=== PATIENT | female | born 1960 | race Caucasian/White ===

== ENCOUNTER → 2017-07-09 07:32 | Outpatient (CLI) | payer BC, SELFPAY ==
--- NOTE | 2017-07-09 07:36 | US_ITS ---
US abdomen limited: HISTORY: Nausea and pain after eating in the epigastric region ITS.REASON: UPPER ABD PAIN, NAUSEA ORDERING PHYSICIAN: Reema Saldana PATIENT AGE: 57 years COMPARISON: None FINDINGS: PANCREAS: Unremarkable. No obvious mass or abnormal fluid collection. No ductal dilatation LIVER: No focal liver lesions demonstrated. Homogeneous echogenicity. No intrahepatic biliary ductal dilatation evident RIGHT KIDNEY: Unremarkable. Normal size and echogenicity. No hydronephrosis GALLBLADDER: There is a 5 mm polyp in the upper aspect of the body of the gallbladder. No gallstones, gallbladder wall thickening, or pericholecystic fluid is evident. IMPRESSION: Small gallbladder polyp otherwise negative gallbladder ultrasound
== END ==
PROVIDERS: PCP Nurse Practitioner; Visit Provider Nurse Practitioner
DX: R10.84 Generalized abdominal pain (principal); R11.0 Nausea
CPT/HCPCS: 76705

== ENCOUNTER → 2017-07-20 10:07 | Outpatient (CLI) | payer BC, SELFPAY ==
--- NOTE | 2017-07-20 10:12 | NM_ITS ---
NM hepatobiliary wo pharm HISTORY: Postprandial nausea and epigastric pain, abnormal ultrasound ITS.REASON: GALLBLADDER POLYP ORDERING PHYSICIAN: Reema Saldana PATIENT AGE: 57 years COMPARISON: None DOSE: 8.53 MCI TC Choletec Fatty Meal: Ensure FINDINGS: Homogeneous activity is present within the hepatic parenchyma. Activity is present in the gallbladder by 15 minutes. Activity is present in the small bowel by 60 minutes. The gallbladder ejection fraction is calculated to be 67% The patient did not report pain or other symptoms after fatty meal ingestion. IMPRESSION: Unremarkable hepatobiliary scan and gallbladder ejection fraction. No evidence of common or cystic duct obstruction with normal gallbladder ejection fraction
--- NOTE | 2017-07-20 10:49 | HMH.ITSHM ---
LEVOTHYROXINE CRESTOR LOSARTAN ESTRADIOL HYDROXIZINE MELOXICAM PANTOPRAZOLE
== END ==
PROVIDERS: PCP Nurse Practitioner; Visit Provider Nurse Practitioner
DX: K82.4 Cholesterolosis of gallbladder (principal)
CPT/HCPCS: 78226; A9537

== ENCOUNTER → 2017-10-15 08:57 | Outpatient (CLI) | payer BC, SELFPAY ==
--- NOTE | 2017-10-15 08:58 | XR_ITS ---
XR DEXA axial skeleton HISTORY: ITS.REASON: screening ORDERING PHYSICIAN: Truman Chilel MD PATIENT AGE: 57 years COMPARISON: 04/27/2016 FINDINGS: The BMD measured at the left femoral neck is 1.045 g/cm squared with a T score of 0.0 . This is considered normal according to the World Health Organization criteria. Fracture risk is low. L1-L4 density has a T score 5.1. The bone density of the L spine has increased by 4% and the density of the hips is increased by 1% compared to the previous exam IMPRESSION: Normal bone density. Suggest follow-up exam October 2019
--- NOTE | 2017-10-15 08:58 | MM_ITS ---
MM Dig screening mamm BI w/CAD CAD Screening COMPARISON: Digital mammograms with CAD 04/27/2016 and 6 month follow-up left mammogram 11/05/2016 INDICATION: There is no personal or family history of breast cancer. This been previous biopsy right breast for benign disease. TECHNIQUE: Standard CC and MLO images were obtained. R2 CAD reviewed. FINDINGS: Moderate heterogenic fibroglandular densities are seen in the central portions of both breast. There are couple benign-appearing calcifications right breast. 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 There is no suspicious lesion and there are no suspicious microcalcifications. IMPRESSION: Moderate breast density with no suspicious lesion seen BI-RADS Category: 2 Benign Finding(s) RECOMMENDED FOLLOW-UP: 1YR - 1 YEAR FOLLOW-UP (A letter has been sent to the patient regarding results of the study.)
== END ==
PROVIDERS: PCP Nurse Practitioner; Visit Provider Obstetrics & Gynecology
DX: Z12.31 Encounter for screening mammogram for malignant neoplasm of breast (principal); Z78.0 Asymptomatic menopausal state
CPT/HCPCS: 77067; 77080

== ENCOUNTER → 2018-01-14 14:06 | Outpatient (CLI) | payer BC, SELFPAY ==
[2018-01-14 15:00] LABS: Blood Urea Nitrogen 16 mg/dL (7-18); Estimated Glomerular Filt Rate 73 ml/min (>60); GFR (African American) 89 ML/MIN (>60)
--- NOTE | 2018-01-14 15:10 | CT_ITS ---
CT facial bones w con CLINICAL INDICATION: Facial pain ITS.REASON: ATYPICAL FACIAL PAIN ORDERING PHYSICIAN: Reema Saldana PATIENT AGE: 57 years COMPARISON: None TECHNIQUE:Axial images obtained following the intravenous ministration of 100 mL's of Isovue-370 with sagittal and coronal reformats. All CT scans at the facility use one or more dose reduction, viz: automated exposure control, ma/kV adjustment per patient size (including targeted exams where dose is matched to indication, i.e. head), or iterative reconstruction technique. FINDINGS: There is a small retention cyst in the floor the right maxillary sinus at 12 mm. Sinuses are otherwise unremarkable with no significant mucosal thickening or air-fluid levels. No adenopathy or soft tissue mass is evident. The orbits have an unremarkable appearance. The TMJs are unremarkable. Incidental note made of a partially empty sella. There is mild rightward nasal septal deviation inferiorly with a small right brent bullosa and mild leftward nasal septal deviation superiorly. The ostomy or units are patent. IMPRESSION: 1. Small right maxillary sinus retention cyst 2. Other nonacute findings as described above
== END ==
PROVIDERS: PCP Nurse Practitioner; Visit Provider Nurse Practitioner
DX: G50.1 Atypical facial pain (principal)
CPT/HCPCS: 36415; 70487; 82565; 84520; Q9967

== ENCOUNTER → 2018-06-20 10:36 | Outpatient (CLI) | payer BC, SELFPAY ==
--- NOTE | 2018-06-20 10:39 | MR_ITS ---
MR lumbar spine wo con, MR 3-d myelogram/MRCP HISTORY: Pain when bending. LBP but worse on LT side. Numbness in LT leg. ITS.REASON: ARTHRITIS, LBP ORDERING PHYSICIAN: Reema Saldana PATIENT AGE: 58 years Comparison: None TECHNIQUE: Standard multiplanar multiecho sequences are performed without contrast. 3-D MIP and myelographic images are also rendered and reviewed FINDINGS: There is normal alignment. The spinal cord ends at the L1 level. L1-L2: Mild bulging disc with mild facet and ligamentum flavum hypertrophy and mild bilateral lateral recess and foraminal narrowing. L2-L3: Mild bulging disc with mild facet and ligamentum flavum hypertrophy and mild bilateral lateral recess and foraminal narrowing L3-L4: Mild bulging disc with mild facet and ligamentum flavum hypertrophy and mild bilateral lateral recess and foraminal narrowing L4-5: Degenerative disc disease with concentric bulging disc which is eccentric toward the right with a right foraminal and lateral disc osteophyte complex. There is right-sided lateral recess and moderate right-sided foraminal narrowing. There is moderate left-sided foraminal narrowing as well and left lateral recess narrowing. Transverse narrowing of the canal at 9 mm. L5-S1: Mild concentric bulging disc facet and ligamentum flavum hypertrophy with moderate left-sided foraminal narrowing. No herniated disc is evident. IMPRESSION: 1. Mild multilevel bulging disc, facet and ligamentum flavum hypertrophy with bilateral lateral recess and foraminal narrowing. Please see above for details description at each level. 2. L4-5: Degenerative disc disease with concentric bulging disc which is eccentric toward the right with a right foraminal and lateral disc osteophyte complex. There is right-sided lateral recess and moderate right-sided foraminal narrowing. There is moderate left-sided foraminal narrowing as well and left lateral recess narrowing. Transverse narrowing of the canal at 9 mm. 3. L5-S1: Mild concentric bulging disc facet and ligamentum flavum hypertrophy with moderate left-sided foraminal narrowing. 4. No herniated disc is evident
== END ==
PROVIDERS: PCP Nurse Practitioner; Visit Provider Nurse Practitioner
DX: M54.5 Low back pain (principal); M19.90 Unspecified osteoarthritis, unspecified site; M25.50 Pain in unspecified joint; R20.0 Anesthesia of skin
CPT/HCPCS: 72148; 76376

== ENCOUNTER → 2018-10-17 08:26 | Outpatient (CLI) | payer BC, SELFPAY ==
--- NOTE | 2018-10-17 08:27 | MM_ITS ---
MM Dig screening mamm BI w/CAD CAD Screening COMPARISON: Digital mammograms with CAD 10/15/2017 and 04/27/2016 INDICATION: There is no personal or family history of breast cancer. There is been previous biopsy right breast for benign disease. TECHNIQUE: Standard CC and MLO images were obtained. R2 CAD reviewed. FINDINGS: Moderate scattered fibroglandular densities are seen in both breast. There is a mole on each breast. There are couple benign-appearing microcalcifications in each breast. There is no suspicious lesion and no suspicious microcalcifications. IMPRESSION: Fibrofatty parenchyma no suspicious lesion seen BI-RADS Category: 2 Benign Finding(s) RECOMMENDED FOLLOW-UP: 1YR - 1 YEAR FOLLOW-UP (A letter has been sent to the patient regarding results of the study.)
== END ==
PROVIDERS: PCP Nurse Practitioner; Visit Provider Obstetrics & Gynecology
DX: Z12.31 Encounter for screening mammogram for malignant neoplasm of breast (principal)
CPT/HCPCS: 77067

== ENCOUNTER → 2019-01-10 08:31 | Outpatient (POV) | payer BC, SELFPAY | PROVIDERS: Visit Provider Dermatology | DX: Z00.00 Encounter for general adult medical examination without abnormal findings (principal) ==

== ENCOUNTER → 2019-10-26 09:43 | Outpatient (CLI) | payer BC, SELFPAY ==
--- NOTE | 2019-10-26 09:43 | MM_ITS ---
PROCEDURE: MM DIG SCREENING MAMM BI W/CAD Digital Breast Tomosynthesis Included CLINICAL INDICATION: Routine Screening Mammogram There is no personal or family history of breast cancer. There has been a previous biopsy right breast for benign disease. Patient currently is on estrogen. COMPARISON: DMDXUAVL DIG MAMM-DX UNI A/VWS-LT W/CAD from 05/06/2016 DMDXUL DIG MAMM-DX UNI-LT W/CAD from 11/05/2016 [facility] MM Dig screening mamm BI w/CAD from 10/15/2017 DIG MAMM-SCREEN FAWN from 10/17/2018 TECHNIQUE: Standard CC and MLO images and 3D Tomosynthesis was obtained. R2 CAD reviewed. FINDINGS: Scattered fibroglandular densities are seen throughout both breasts. There are 2 biopsy clips right breast. There is a mole marker right breast. Again noted are scattered microcalcifications left breast which appear to be typical of sclerosing and they appear to be stable. IMPRESSION: Fibrofatty parenchyma with no suspicious lesions seen BI-RAD Category: 2 Benign Finding(s) FOLLOW-UP: 1YR 1 Year Follow-up (A letter has been sent to the patient regarding results of the study.) Dictated by: Dr. Neto Bridges MD 10/27/2019 10:[address] Neto Bridges MD in [place] 10/27/2019 10:04
== END ==
PROVIDERS: PCP Nurse Practitioner; Visit Provider Obstetrics & Gynecology
DX: Z12.31 Encounter for screening mammogram for malignant neoplasm of breast (principal)
CPT/HCPCS: 77063; 77067

== ENCOUNTER → 2019-12-22 14:17 | Outpatient (CLI) | payer BC, SELFPAY ==
--- NOTE | 2019-12-22 14:24 | MR_ITS ---
PROCEDURE: MR HIP LT WO CON CLINICAL INDICATION: HIP PAIN PT. C/O LEFT HIP PAIN X 3-4 MONTHS WITH NO KNOWN INJURY OR TRAUMA. COMPARISON: No exams were available for comparison TECHNIQUE: Routine multiplanar multi echo sequences are performed without and with gadolinium enhancement. FINDINGS: The left hip has an unremarkable appearance. No evidence of fracture or dislocation. No evidence of avascular necrosis. No significant effusion. There is a small oval fluid collection in the deep aspect left vastus lateralis muscle this measures 13 by 13 by 8 mm. IMPRESSION: 1. Negative MRI of the left hip. 2. 13 mm cystic region within the deep aspect of the left vastus lateralis muscle. This is along the proximal shaft of the femur laterally and is of questionable clinical significance. Consider 3 month follow-up to confirm short term stability. Dictated by: Noble Ravi MD 12/27/2019 09:00 Noble Ravi MD in [place] 12/27/2019 09:00
== END ==
PROVIDERS: PCP Nurse Practitioner; Visit Provider Nurse Practitioner
DX: M25.552 Pain in left hip (principal)
CPT/HCPCS: 73721

== ENCOUNTER → 2020-01-05 12:25 | Outpatient (CLI) | payer BC, SELFPAY ==
--- NOTE | 2020-01-05 | XR_ITS ---
PROCEDURE: XR CHEST 2V CLINICAL HISTORY: NONSPEC REACTION TO GAMMA INTRFM RESPNS W/O TB COMPARISON: CR CXR CHEST(2 VIEWS-NOT PORTABLE) from 04/13/2016 FINDINGS: The cardiomediastinal silhouette and pulmonary vascularity are within normal limits. The lungs are clear without infiltrates, suspicious nodules, or pleural effusions. No acute bony abnormalities. IMPRESSION: No acute findings. Dictated by: Noble Ravi MD 01/05/2020 18:37 Noble Ravi MD in [place] 01/05/2020 18:37
== END ==
PROVIDERS: PCP Nurse Practitioner; Visit Provider Internal Medicine
DX: R76.12 Nonspecific reaction to cell mediated immunity measurement of gamma interferon antigen response without active tuberculosis (principal)
CPT/HCPCS: 71046

== ENCOUNTER → 2020-01-09 08:55 | Outpatient (CLI) | payer BC, SELFPAY ==
--- NOTE | 2020-01-09 08:59 | XR_ITS ---
PROCEDURE: XR HIP LT 2-3V W/PELVIS CLINICAL INDICATION: left hip pain COMPARISON: CR BONE BONE DENSITOMETRY(HIP:LT SPINE from 04/07/2013 CR BONE3 BONE DENSITOMETRY(HIP:LT SPINE from 04/27/2016 FINDINGS: Minimal osteoarthritic changes are present. No fracture or dislocation. No lytic or blastic change. IMPRESSION: Minimal osteoarthritic change otherwise negative Dictated by: Noble Ravi MD 01/09/2020 13:10 Noble Ravi MD in [place] 01/09/2020 13:10
== END ==
PROVIDERS: PCP Nurse Practitioner; Visit Provider Orthopaedic Surgery
DX: M25.552 Pain in left hip (principal)
CPT/HCPCS: 73502

== ENCOUNTER 2020-02-09 10:30 | Outpatient (RCR) | payer BC, SELFPAY ==
--- NOTE | 2020-01-17 15:52 | HMH.PTOPEV ---
PT Outpatient Evaluation Rehab PT Outpatient Evaluation Start: 01/17/20 15:37 Freq: Status: Active Protocol: Document 01/17/20 15:37 MALATHI (Rec: 01/17/20 15:52 MALATHI [email or web address]) Electronically Signed By Joao Rosa, PT 01/17/20 15:37 Outpatient Therapy Subjective History Subjective History Patient is a 59 year old female presenting to outpatient PT with reports of chronic Left hip pain starting approx 2 years ago that has progressively gotten worse over the past 6 months. Symptoms of insidious onset. She most recently received an injection approx 1 week ago that has provided some significant relief. No recent imaging to report. Comorbidities include hx of B ankle pain/instability, HTN, HL, hysterectomy and appendectomy. Chief Complaint Pain Symptom Type Ache Symptoms Relieved By Rest/Positioning Symptoms Aggravated By Standing,Physical Activity, Walking Prior Functional Limitations None Current Functional Limitations Housework,Standing,Squatting, Recreation Activity,Walking, Stairs Symptom Description Intermittent Level of pain today (0-10) 0 Pain scale - at its best (0-10) 0 Pain scale - at its worst (0-10) 9 Hip/Knee Eval Gait Observation General Gait Pattern Observation Antalgic Gait,Decrease Weight Bear (L) Assistive Device Assistive Devices None / NA Palpation Tenderness left Knee Palpation Overall Comment L greater trochanter/ pififormis 3/4 Hip Palpation Findings Tenderness MMT Hip Flexion Strength Grade 4 Good Hip Abduction Strength Grade 4 Good Hip Adduction Strength Grade 4- Good- Hip Extension Strength Grade 4- Good- Hip External Rotation Strength Grade 4- Good- Hip Internal Rotation Strength Grade 4- Good- Knee Extension Strength Grade 4 Good Knee Flexion Strength Grade 4 Good ROM Hip Flexion w/Knee Extended Passive 65 Range of Motion (degrees) Hip Abduction Passive Range of Motion ( WNL degrees) Hip Extension Passive Range of Motion ( 5 degrees) Hip External Rotation Passive Range of WNL Motion (degrees)
== END 2020-02-09 10:35 | disposition home or self-care (01) ==
LOC: PT 10:30
PROVIDERS: PCP Nurse Practitioner; Visit Provider Orthopaedic Surgery
DX: M70.62 Trochanteric bursitis, left hip (principal); M25.552 Pain in left hip
CPT/HCPCS: 20561; 97010; 97014; 97033; 97035; 97110; 97140; 97163; G0283

== ENCOUNTER → 2020-04-09 09:48 | Outpatient (CLI) | payer BC, SELFPAY ==
--- NOTE | 2020-04-09 09:52 | XR_ITS ---
PROCEDURE: XR HIP LT 2-3V W/PELVIS CLINICAL INDICATION: left hip pain COMPARISON: CR XR HIP LT 2-3V W/PELVIS from 01/09/2020 FINDINGS: No fracture or dislocation is evident. No significant degenerative change. No lytic or blastic change. Unremarkable soft tissues. The SI joints and symphysis pubis appear normal. There is disc space narrowing and mild osteophytic spurring at the L4-5 level. IMPRESSION: No acute findings. Dictated by: Dr. Neto Bridges MD 04/09/2020 11:04 Dr. Neto Bridges MD in [place] 04/09/2020 11:04
== END ==
PROVIDERS: PCP Nurse Practitioner; Visit Provider Orthopaedic Surgery
DX: M25.552 Pain in left hip (principal); G89.29 Other chronic pain
CPT/HCPCS: 73502

== ENCOUNTER → 2020-10-30 07:53 | Outpatient (CLI) | payer BC, SELFPAY ==
--- NOTE | 2020-10-30 07:53 | MM_ITS ---
PROCEDURE: MM DIG SCREENING MAMM BI W/CAD Digital Breast Tomosynthesis Included CLINICAL INDICATION: screening mammogram There is no personal or family history of breast cancer. There has been a previous biopsy right breast for benign disease. Patient currently is on estrogen. COMPARISON: MG [facility] MM Dig screening mamm BI w/CAD from 10/15/2017 MG DIG MAMM-SCREEN FAWN from 10/17/2018 MG MM DIG SCREENING MAMM BI W/CAD from 10/26/2019 TECHNIQUE: Standard CC and MLO images and 3D Tomosynthesis was obtained. R2 CAD reviewed. FINDINGS: Moderate diffuse fibroglandular densities are seen in the central portions of both breasts. There are 2 biopsy clips right breast and there is a benign-appearing microcalcification left breast. CAD markings were reviewed and they appear to be secondary to faint vascular calcifications. There is no suspicious lesion and no suspicious microcalcifications. IMPRESSION: Fibrofatty parenchyma with no suspicious lesions seen BI-RAD Category: 2 Benign Finding(s) FOLLOW-UP: 1YR 1 Year Follow-up (A letter has been sent to the patient regarding results of the study.) Dictated by: Dr. Neto Bridges MD 10/30/2020 14:43 Dr. Neto Bridges MD in [place] 10/30/2020 14:43
== END ==
PROVIDERS: PCP Family Medicine; Visit Provider Obstetrics & Gynecology
DX: Z12.31 Encounter for screening mammogram for malignant neoplasm of breast (principal)
CPT/HCPCS: 77063; 77067

== ENCOUNTER → 2021-11-03 10:49 | Outpatient (CLI) | payer BC, SELFPAY ==
--- NOTE | 2021-11-03 10:49 | MM_ITS ---
PROCEDURE INFORMATION: Exam: MG Bilateral Screening 3D Mammography Exam date and time: 11/03/2021 10:50 AM Age: 61 years old Clinical indication: Screening examination; Additional info: Screening mammogram TECHNIQUE: Imaging protocol: Bilateral Screening tomosynthesis and 2D mammography including computer-aided detection (CAD) when performed. COMPARISON: 1. MG MM DIG SCREENING MAMM BI W/CAD 10/30/2020 8:15 AM 2. MG MM DIG SCREENING MAMM BI W/CAD 10/26/2019 9:52 AM 3. MG DIG MAMM-SCREEN FAWN 10/17/2018 8:59 AM FINDINGS: MAMMOGRAPHY: Breast composition: The breasts are heterogeneously dense, which may obscure small masses. Mass: No suspicious masses. Architectural distortion: No suspicious distortion. Calcifications: No suspicious calcifications. Asymmetric density: None. Skin thickening: None. Axillary adenopathy: None. IMPRESSION: No mammographic evidence of malignancy. Annual screening is recommended unless otherwise clinically indicated. ASSESSMENT: BI-RADS Category 1: Negative
== END ==
PROVIDERS: PCP Family Medicine; Visit Provider Obstetrics & Gynecology
DX: Z12.31 Encounter for screening mammogram for malignant neoplasm of breast (principal)
CPT/HCPCS: 77063; 77067

== ENCOUNTER → 2022-12-21 13:00 | Outpatient (CLI) | payer BC, SELFPAY ==
--- NOTE | 2022-12-21 13:01 | MM_ITS ---
PROCEDURE INFORMATION: Exam: MG Bilateral Screening 3D Mammography Exam date and time: 12/21/2022 1:18 PM Age: 62 years old Clinical indication: Screening examination TECHNIQUE: Imaging protocol: Bilateral Screening tomosynthesis and 2D mammography including computer-aided detection (CAD) when performed. COMPARISON: 1. MG MM DIG SCREENING MAMM BI W/CAD 11/03/2021 10:50 AM 2. MG MM DIG SCREENING MAMM BI W/CAD 10/30/2020 8:15 AM FINDINGS: MAMMOGRAPHY: Breast composition: The breasts are heterogeneously dense, which may obscure small masses. Mass: None. Architectural distortion: None. Calcifications: No suspicious calcifications. Asymmetric density: None. Skin thickening: None. Axillary adenopathy: None. IMPRESSION: No mammographic evidence of malignancy. Annual screening is recommended unless otherwise clinically indicated. ASSESSMENT: BI-RADS Category 1: Negative
== END ==
PROVIDERS: PCP Family Medicine; Visit Provider Nurse Practitioner Obstetrics & Gynecology
DX: Z12.31 Encounter for screening mammogram for malignant neoplasm of breast (principal)
CPT/HCPCS: 77063; 77067

== ENCOUNTER 2023-08-11 14:02 | Outpatient (CLI) | payer MEDICARE, SELFPAY ==
--- NOTE | 2023-08-11 14:05 | CA_ITS ---
APPROVED REPORT EXAM: Comprehensive 2D, Doppler, and color-flow Echocardiogram Family Consumer Scientist: Xiao Reveles RVT Ht: 5 ft 9 in Wt: 212lbs BSA: 2.12 BP: 118/80 mmHg Indications: SOA,BRADYCARDIA,HTN,HLD 2D Dimensions IVSd 1.23 cm F: 0.6-1.0 LVEF (Visual) 62.10 % PWd 0.76 cm F: 0.6 - 1.0 LA Volume 65.20 mL LVDd 4.02 cm F: 3.9 - 5.3 LA Volume Index 30.75 mL/m2 (M/F) 16-34 LVDs 2.69 cm F: 2.2 - 3.5 M-Mode Dimensions RVDd 3.15 cm (0.9-2.6) LA Diam 3.93 cm (1.9-4.0) LVDd 5.16 cm (3.5-5.7) IVSd 0.76 cm (0.6-1.1) PWd 0.61 cm (0.6-1.1) EDV (Teich) 127.20 mL TAPSE 2.68 (<1.7) LV Diastology E Decel Time 167 (160-240 msec) E/A Ratio 1.1 Aortic Valve SHAWNA Index 0.92 cm2/m2 AoV Peak Roger. 172.0 (50-130 cm/s) AO Peak GR. 11.80 mmHg AO Mean GR. 5.50 (<5 mmHg) AO VTI 34.2 (18-25 cm) SHAWNA (VTI) 2.00 (2.5-4.5 cm2) Mitral Valve MV E Max Roger. 87.0 (40-130 cm/s) MV A Velocity 81.0 (40-130 cm/s) E/A Ratio 1.08 MV PHT 49.0 ms Pulmonary Valve PV Peak Velocity 105.0 (50-150 cm/s) Tricuspid Valve TR P. Velocity 200.00 cm/s RAP Estimate 10.00 mmHg RVSP 25.90 mmHg Left Ventricle The left ventricle is normal size. The left ventricular systolic function is normal. The left ventricular ejection fraction is within the normal range. Proximal septal thickening is noted. There is normal LV segmental wall motion. The left ventricular diastolic function is normal. LVEF is 60%. Right Ventricle The right ventricle is normal size. The right ventricular systolic function is normal. Atria The left atrium size is normal. The right atrium size is normal. There is no Doppler evidence of interatrial shunt. Aortic Valve The aortic valve opens well. There is no aortic valvular stenosis. No aortic regurgitation is present. Mitral Valve The mitral valve is normal in structure. No evidence of mitral valve stenosis. There is no mitral valve regurgitation noted. Tricuspid Valve The tricuspid valve leaflets are thin and pliable. Trace tricuspid regurgitation. There is insufficient TR jet to estimate RVSP. Pulmonic Valve The pulmonary valve is normal in structure. Trace pulmonic regurgitation. Great Vessels The aortic root is normal in size. The ascending aorta is normal in size. IVC is normal in size and collapses >50% with inspiration. Pericardium There is no pericardial effusion. Other Information Study Quality: Fair Conclusion Normal biventricular systolic function. No significant valvular stenosis or regurgitation. Electronically signed by : Nurys Darnell MD 08/15/2023 19:20:13
== END 2023-08-11 23:59 | disposition home or self-care (01) ==
LOC: RT 14:03
PROVIDERS: PCP Family Medicine; Visit Provider Family Medicine
DX: R60.0 Localized edema (principal); R00.2 Palpitations; R06.02 Shortness of breath
CPT/HCPCS: 93306

== ENCOUNTER 2024-01-07 12:53 | Outpatient (CLI) | payer MEDICARE, SELFPAY ==
--- NOTE | 2024-01-07 12:53 | MM_ITS ---
PROCEDURE INFORMATION: Exam: MG Bilateral Screening 3D Mammography Exam date and time: 01/07/2024 12:48 PM Age: 63 years old Clinical indication: Screening examination. TECHNIQUE: Imaging protocol: Bilateral Screening tomosynthesis and 2D mammography including computer-aided detection (CAD) when performed. COMPARISON: 1. MG MM DIG SCREENING MAMM BI W/CAD 12/21/2022 1:18 PM 2. MG MM DIG SCREENING MAMM BI W/CAD 11/03/2021 10:50 AM FINDINGS: MAMMOGRAPHY: Breast composition: There are scattered areas of fibroglandular density. Mass: None. Architectural distortion: None. Calcifications: No suspicious calcifications. Asymmetric density: None. Skin thickening: None. Axillary adenopathy: None. IMPRESSION: No mammographic evidence of malignancy. Annual screening is recommended unless otherwise clinically indicated. ASSESSMENT: BI-RADS Category 1: Negative.
== END 2024-01-07 23:59 | disposition home or self-care (01) ==
LOC: RAD 12:53
PROVIDERS: PCP Family Medicine; Visit Provider Obstetrics & Gynecology
DX: Z12.31 Encounter for screening mammogram for malignant neoplasm of breast (principal)
CPT/HCPCS: 77063; 77067

== ENCOUNTER 2024-05-16 11:35 | Outpatient (CLI) | payer MEDICARE, SELFPAY ==
[2024-05-16 12:07] LABS: Basophils # 0.1 K/mm3 (0-0.2); Basophils % 0.8 % (0.1-2.0); Eosinophils # 0.1 K/mm3 (0.0-0.4); Hematocrit 43.9 % (37.0-47.0); Hemoglobin 13.8 g/dL (12.2-16.2); Lymphocytes # 2.4 K/mm3 (0.7-4.5); Lymphocytes % 37.3 % (10-50); Mean Corpuscular HGB Conc 31.4 g/dL (31.8-35.4); Mean Corpuscular Hemoglobin 26.7 pg (27.0-31.2); Mean Corpuscular Volume 85.1 fl (81-99); Mean Platelet Volume 10.3 fl (7.4-10.4); Monocytes # 0.6 K/mm3 (0.1-1.0); Monocytes % 8.8 % (1.7-9.3); Neutrophils # 3.2 K/mm3 (1.8-7.8); Neutrophils % 50.9 % (37.0-80.0); Platelet Count 335 K/mm3 (142-424); Red Blood Count 5.16 M/mm3 (4.20-5.40); Red Cell Distribution Width 13.9 % (11.5-17.5); White Blood Count 6.4 K/mm3 (4.8-10.8)
[2024-05-16 12:17] LABS: Albumin Level 4.6 g/dl (3.5-5.0); Chloride 105 mmol/L (98-107); Potassium 4.6 mmoL/L (3.5-5.1); Sodium 143 mmol/L (136-145)
[2024-05-16 12:20] LABS: Alanine Aminotransferase 23 U/L (12-78); Albumin/Globulin Ratio 1.6 (1.1-1.8); Alkaline Phosphatase 75 U/L (38-126); Anion Gap 14.6 mEq/L (5-15); Aspartate Amino Transferase 29 U/L (14-36); Bilirubin,Total 1.4 mg/dl (0.2-1.3); Blood Urea Nitrogen 25 mg/dl (7-17); Carbon Dioxide 28 mmol/L (22.0-30.0); Estimated Glomerular Filt Rate 72 ml/min (>60); GFR (African American) 87 ML/MIN (>60); Globulin 2.9 g/dL (1.3-3.2); Total Protein,Serum 7.5 g/dl (6.3-8.2)
[2024-05-16 12:21] LABS: Glucose 144 mg/dl (74-100)
== END 2024-05-16 23:59 | disposition home or self-care (01) ==
LOC: LAB 11:36
PROVIDERS: PCP Family Medicine; Visit Provider Obstetrics & Gynecology
DX: E78.5 Hyperlipidemia, unspecified (principal); I10 Essential (primary) hypertension
CPT/HCPCS: 36415; 80053; 85025

== ENCOUNTER 2025-02-13 14:06 | Outpatient (CLI) | payer MEDICARE, SELFPAY ==
--- OUTSIDE RECORDS SUMMARY | 2024-12-29 13:45 | XMS_ITS | Encounter Summary ---
Author Organization [facility] yste Address [address] [place] [address] Care Team Providers Care Respooler Name Role Phone Jamaal Diaz MD Primary Care Provider + Reason for Visit * Reason Comments Osteoarthritis Follow up Encounter Details Date Type Department Care Team (Latest Contact Info) Description 12/29/2024 2:45 PM EDT Office Visit [facility] RHEUMATOLOGY [address] [address] Hal Wadsworth DO [address] [phone] Primary osteoarthritis involving multiple joints (Primary Dx); Encounter for therapeutic drug monitoring Social History Tobacco Use Types Packs/Day Years Used Date Smoking Tobacco: Never Passive Smoke Exposure: Past Smokeless Tobacco: Never Alcohol Use Standard Drinks/Week Comments Never 0 (1 standard drink = 0.6 oz pur e alcohol) PHQ-2 Answer Date Recorded Retired PHQ-9: Brief Depression Severity Measure Score 0 10/05/2022 PHQ-2 Answer Date Recorded Patient Health Questionnaire-2 Score 0 05/23/2024 Comments Unknown Sex and Gender Information Value Date Recorded Sex Assigned at Female 12/28/2024 5:32 PM EDT Legal Sex Female 12:47 PM EST Gender Identity Not on file Sexual Orientation Straight 12/28/2024 5: 32 PM EDT documented as of this encounter Last Filed Vital Signs Vital Sign Reading Time Taken Comments Blood Pressure 142/80 12/29/2024 2:09 PM EDT Pulse 57 12/29/2024 2:09 PM EDT Temperature 36.2 C (97.1 F) 12/29/2024 2:09 PM EDT Respiratory Rate - - Oxygen Saturation - - Inhaled Oxygen Concentration - - Weight 95.3 kg (210 lb 1.6 oz) 12/29/2024 2:09 P M EDT Height 175.3 cm (5' 9.02 ) 12/29/2024 2:09 PM ED T Body Mass Index 31.01 12/29/2024 2:09 PM EDT documented in this encounter Patient Instructions * Attachments The following attachments cannot be sent through Care Everywhere. * Arthritis (Macedonian) documented in this encounter Progress Notes * Hal Wadsworth DO - 12/29/2024 2:45 PM EDTAssociated Problem(s): Osteoarthritis * Medications/treatments/interventions tried include: Tylenol, Celebrex, IM steroid injections, gabapentin, oral prednisone taper, hydrocodone/APAP, She has seen podiatry, meloxicam, She has seen a film painter, she got back injections, Tramadol, Physical therapy, Trochanteric bursa injection, she has tried collagen peptides, She has tried essential oils * 12/27/19 autoimmune testing normal 1. Tylenol PRN is ok as directed. 2. She has tried NSAIDS including OTC, Meloxicam, and Celebrex. 3. Weight loss would be helpful. 4. She has seen pain management and received back & hip injections. 5. We will request recent labs from PCP 6. She has seen podiatry for her feet/ankles. 7. Follow up with us in 6 months. 8. Continue/refill Tramadol PRN 9. We gave her a handout on arthritis to take home and review 10. She has tried essential oils 11. She has tried collagen peptides * Hal Wadsworth DO - 12/29/2024 2:45 PM EDTAssociated Problem(s): Encounter for therapeutic drug monitoring * Tramadol 50 mg every 6 hours PRN for pain * Controlled substance agreement updated 12/29/24 Check [place] and Drug screen as required. Drug screen ordered today * Hal Wadsworth DO - 12/29/2024 2:45 PM EDT Office Follow Up Date: 12/29/2024 Patient Name: Mer Peñaloza Date of : 1960 Chief Complaint Patient presents with Osteoarthritis Follow up History of Present Illness: Mer Peñaloza is a 64 y.o. female who is here today for follow up. We prescribed her Tramadol 50 mg every 6 hours PRN for pain relief. 12/27/19 autoimmune testing was normal. No recent injuries. No fever. She has chronic and constant pain. She has seen pain management and had SI joint injection. Today she rates her pain as 7/10 in severity. She has 1-2 hours/day of morning stiffness. No red or hot joints. No swelling today. She has back pain. Her neck hurts and is stiff. No muscle pain or weakness. No paresthesias. No headaches. No lymphadenopathy. No abnormal bruising/bleeding. No rash. Her skinis dry. No hair loss. No issues. She has indigestion. No chest pain. She is short of breath. No sicca symptoms. Subjective Review of Systems Constitutional: Positive for diaphoresis. HENT: Positive for sinus pressure. Eyes: Negative. Respiratory: Negative. Cardiovascular: Negative. Gastrointestinal: Negative. Positive for indigestion. Endocrine: Positive for heat intolerance. Genitourinary: Negative. Musculoskeletal: Positive for arthralgias, back pain, neck pain and neck stiffness. Skin: Positive for dry skin. Allergic/Immunologic: Negative. Neurological: Negative. Hematological: Negative. Psychiatric/Behavioral: Negative. All other systems reviewed and are negative. Current Outpatient Medications: Acetaminophen (TYLENOL ARTHRITIS PAIN PO), Take by mouth., Disp: , Rfl: amLODIPine (NORVASC) 10 MG tablet, Take 1 tablet by mouth Daily., Disp: 90 tablet, Rfl: 3 famotidine (PEPCID) 40 MG tablet, Take 1 tablet by mouth 2 (Two) Times a Day., Disp: 180 tablet, Rfl: 3 fluocinonide (LIDEX) 0.05 % gel, Apply 1 Application topically to the appropriate area as directed 4 (Four) Times a Day., Disp: 60 g, Rfl: 1 hydrOXYzine (ATARAX) 25 MG tablet, TAKE 1 TABLET BY MOUTH EVERY 8 HOURS NEEDED FOR ITCHING, Disp: 270 tablet, Rfl: 0 levothyroxine (SYNTHROID, LEVOTHROID) 75 MCG tablet, Take 1 tablet by mouth once daily, Disp: 90 tablet, Rfl: 3 montelukast (SINGULAIR) 10 MG tablet, Take 1 tablet by mouth Every Night., Disp: 90 tablet, Rfl: 3 rosuvastatin (CRESTOR) 40 MG tablet, Take 1 tablet by mouth Daily., Disp: 90 tablet, Rfl: 3 traMADol (ULTRAM) 50 MG tablet, Take 1 tablet by mouth Every 6 (Six) Hours As Needed for Moderate Pain., Disp: 120 tablet, Rfl: 5 Allergies Allergen Reactions Keflex [Cephalexin] Nausea And Vomiting I have reviewed and updated the patient's chief complaint, history of present illness, review of systems, past medical history, surgical history, family history, social history, medications and allergy list as appropriate. Objective Vitals: 12/29/24 1409 BP: 142/80 BP Location: Left arm Patient Position: Sitting Cuff Size: Large Adult Pulse: 57 Temp: 97.1 ??F (36.2 ??C) Weight: 95.3 kg (210 lb 1.6 oz) Height: 175.3 cm (69.02 ) PainSc: 7 Body mass index is 31.01 kg/m??. Physical Exam General: Well appearing 64 year old female. Not in distress. She is ambulating unassisted. SKIN: No rashes. No alopecia. No subcutaneous nodules. No digital pits or ulcers. No sclerodactyly. HEENT: NCAT. Conjunctiva clear, no photophobia. No oral or nasal ulcers. Hearing intact. Pulmonary: Clear to auscultation bilaterally. No wheezing, rales, or rhonchi. CV: Regular rate and rhythm. No murmurs, rubs, or gallops. Psych: Normal mood and affect. Alert and oriented x 3. Extremities: No cyanosis. She has trace edema in her feet/legs. Musculoskeletal: No joint swelling or tenderness to palpation. No warmth or erythema. Normal range of motion of the wrists, ankles, elbows, and knees. She has He[place] and Isma nodes bilaterally. Lymph: No palpable cervical adenopathy Procedures Assessment / Plan Assessment & Plan Primary osteoarthritis involving multiple joints * Medications/treatments/interventions tried include: Tylenol, Celebrex, IM steroid injections, gabapentin, oral prednisone taper, hydrocodone/APAP, She has seen podiatry, meloxicam, She has seen a film painter, she got back injections, Tramadol, Physical therapy, Trochanteric bursa injection, she has tried collagen peptides, She has tried essential oils * 12/27/19 autoimmune testing normal 1. Tylenol PRN is ok as directed. 2. She has tried NSAIDS including OTC, Meloxicam, and Celebrex. 3. Weight loss would be helpful. 4. She has seen pain management and received back & hip injections. 5. We will request recent labs from PCP 6. She has seen podiatry for her feet/ankles. 7. Follow up with us in 6 months. 8. Continue/refill Tramadol PRN 9. We gave her a handout on arthritis to take home and review 10. She has tried essential oils 11. She has tried collagen peptides Encounter for therapeutic drug monitoring * Tramadol 50 mg every 6 hours PRN for pain * Controlled substance agreement updated 12/29/24 Check [place] and Drug screen as required. Drug screen ordered today Orders Placed This Encounter Procedures Urine Drug Screen - Urine, Clean Catch New Medications Ordered This Visit Medications traMADol (ULTRAM) 50 MG tablet Sig: Take 1 tablet by mouth Every 6 (Six) Hours As Needed for Moderate Pain. Dispense: 120 tablet Refill: 5 Follow Up: Return in about 6 months (around 06/28/2025). Hal Wadsworth DO [facility] [place] documented in this encounter Plan of Treatment Upcoming Encounters Date Type Department Care Team (Late st Contact Info) Description 05/29/2025 10:15 AM EST Office Visit [facility] FAMILY MEDICINE [address] [facility] [place] [address] Jamaal Diaz MD [address] [place], [place] [id number] 07/02/2025 11:30 AM EDT Office Visit [facility] RHEUMATOLOGY [address] [address] Hal Wadsworth DO [address] [address] documented as of this encounter Procedures Procedure Name Priority Date/Time Associated Diagnosis Comments URINE DRUG SCREEN Routine 12/29/2024 3:2 8 PM EDT Primary osteoarthritis involving multiple joints Encounter for therapeutic drug monitoring documented in this encounter Results * (ABNORMAL) Urine Drug Screen - Urine, Clean Catch (12/29/2024 3:28 PM EDT) Amphetamine, Urine Qual Negative Cutoff=10 00 ng/mL [facility] Barbiturates Screen, Urine Negative Cutoff=20 0 ng/mL [facility] Benzodiazepine Screen, Urine Negative Cutoff=20 0 ng/mL [facility] THC Screen, Urine Negative Cutoff=20 ng/mL [facility] Cocaine Screen, Urine Negative Cutoff=30 0 ng/mL [facility] Opiate Screen, Urine Negative Cutoff=30 0 ng/mL [facility] Comment:Opiate test includes Codeine, Morphine, Hydromorphone, Hydrocodone. Oxycodone/Oxymorph one, Urine Negative Cutoff=10 0 ng/mL [facility] Comment:Test includes Oxycod one and Oxymorphone Phencyclidine (PCP), Urine Negative Cutoff=25 ng/mL [facility] Methadone Screen, Urine Negative Cutoff=30 0 ng/mL [facility] Propoxyphene Screen Negative Cutoff=30 0 ng/mL [facility] Creatinine, Urine 329.5(H) 20.0 - 300.0 mg/dL [facility] pH, UA 5.5 4.5 - 8.9 [facility] Please note Comment [facility] Comment: This assay provides a preliminary unconfirmed analytical test result that may be suitable for clinical management of patients in certain situations. Drug-test results should be interpreted in the context of clinical information. Patient metabolic variables, specific drug chemistry, and specimen characteristics can affect test outcome. Technical consultation is available if a test result is inconsistent with an expected outcome. Email: [email or web address] Urine Urine specimen obtained by clean catch procedure / Unknown 12/29/2024 3:28 PM EDT 12/29/2024 Narrative [facility] ([facility]) - 01/02/2025 8:08 AM EDT Performed at: - [facility] [address] [place], [place] [id number] Cash Applications Analyst: Verna Burr PhD, Phone: [phone] Patient Fasting: N us Hal Wadsworth DO URINE ORDERABLES Final Result [facility] (AMBULAT[facility]) [address] [place] [address], [place] [phone] [facility] [address] [place] [address], [place] [phone] documented in this encounter Visit Diagnoses Diagnosis Primary osteoarthritis involving multiple joints- Primary Encounter for therapeutic drug monitoring documented in this encounter Care Teams Respooler Relationship Specialty Start Date End Date Jamaal Diaz MD [address] [place] [address] PCP - General Family Medicine 09/18/21 documented as of this encounter
--- OUTSIDE RECORDS SUMMARY | 2025-02-13 14:09 | XMS_ITS | Clinical Summary ---
Author Organization [facility] Address [address] [place] [address] Phone Care Team Providers Care Patient Access Manager Name Role Phone Manuelito VALLADARES, Jones Wolf [phone] Conditions or Problems Problem Name Problem Code Onset Date Status Entry Date Provider Comment Standard Description Annotate Other obesity due to excess calories 513358543 (SNOMED CT) 05/06 Active 05/06 Diego Kidd Simple obesity Seasonal allergies 998475329 (SNOMED CT) Active Jones Billings MD Seasonal allergy Osteoarthritis 460324937 (SNOMED CT) Active Jones Billings MD Osteoarthritis 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 (SNOMED CT) Active Jones Billings MD Nonspecific tuberculin test reaction + QuantiFERON GOLD-TB skin test w/o active TB R76.12 (ICD-10-CM ) Active Cari Avalos Nonspecific reaction to cell mediated immunity measurement of gamma interferon antigen response without active tuberculosis Medications Medication Instructions Start Date Stop Date Generic Name [facility] Provider B-6 50 MG TABS 50 mg once weekly PYRIDOXINE HCL [id number] Jones Billings MD PRIFTIN 150 MG TABS 900 mg (6 tablets) once weekly RIFAPENTINE [id number] Jones Billings MD ISONIAZID 300 MG TABS 900 mg (3 tabs) once weekly ISONIAZID [id number] Jones Billings MD CELECOXIB 200 MG CAPS Take by mouth twice a day/PRN CELECOXIB [id number] Marla Carpenter MONTELUKAST SODIUM 10 MG TABS Take one by mouth daily MONTELUKAST SODIUM [id number] Marla Carpenter HYDROXYZINE HCL 25 MG TABS Take one by mouth daily HYDROXYZINE HCL 79478278545 Marla Carpenter HYDROCHLOROTHIAZIDE 25 MG TABS Take one by mouth daily HYDROCHLOROTHIAZIDE 87186048573 Marla Carpenter LOSARTAN POTASSIUM 100 MG TABS Take one by mouth daily LOSARTAN POTASSIUM [id number] Marla Carpenter ESTRADIOL 2 MG TABS Take one by mouth daily ESTRADIOL 64807727869 Marla Carpenter LEVOTHYROXINE SODIUM 50 MCG TABS Take one by mouth daily LEVOTHYROXINE SODIUM 89669961324 Marla Carpenter ROSUVASTATIN CALCIUM 40 MG TABS Take one by mouth daily ROSUVASTATIN CALCIUM 64786993910 Marla Carpenter PANTOPRAZOLE SODIUM 40 MG TBEC Take one by mouth daily PANTOPRAZOLE SODIUM 04015103101 Marla Carpenter Medications Administered No information available. Allergies, Adverse Reactions, Alerts Allergy Name Reaction Description Start Date Severity Statu s Provider CEPHALEXIN Moderate Active Marla Carpenter Results Date Name Value Unit Range Flag Description Lab Report: CBC WITH AUTO DI FFERENTIAL ZZ-GE-unk 0.0 /100 WBC 0.0-0.2 GE use only - fo r [employer] import when terms are not otherwise specified IMMATUREGRAN 0.02 10*3/MM3 0.00-0.05 Immature granulocytes [#/volume] in Blood BASO# 0.05 10*3/mm3 0.00-0.20 Basophils [#/vol ume] in Blood EOS ABSLT 0.18 10*3/uL 0.00-0.40 Eosinophi ls [#/volume] in Blood MONOSCT AUTO 0.56 10*3/uL 0.10-0.90 Monocy vishal [#/volume] in Blood by Automated count LYMPHCT AUTO 1.83 10*3/mm3 0.70-3.10 Lymph ocytes [#/volume] in Blood by Automated count ABS NEUTROPH 3.75 10*3/uL 1.70-7.00 Neutro phils [#/volume] in Blood IMM GRANU % 0.3 % 0.0-0.5 Immature granulocytes/100 leukocytes in Blood % EOS AUTO 2.8 % 0.3-6.2 Eosinophil s/100 leukocytes in Blood by Automated count MONOCYTE % 8.8 % 5.0-12.0 Monocytes /100 leukocytes in Blood by Automated count LYMPHOCY BF 28.6 % 19.6-45.3 lymphoc ytes as percent of body fluid leukocytes NEUTROP BF 58.7 % 42.7-76.0 Neutroph ils/100 leukocytes in Body fluid PLATELETS 279 10*3/mm3 140-450 Platelets [#/volume] in Blood by Automated count RDW_ 12.8 12.3-15.4 RDW, no uni ts MCHC 31.8 G/DL 31.5-35.7 MCHC [Mass/ volume] by Automated count MCH 27.1 pg 26.6-33.0 MCH [Entiti c mass] by Automated count MCV 85.3 fL 79.0-97.0 MCV [Entiti c volume] by Automated count HCT 44.7 % 34.0-46.6 Hematocrit [Volume Fraction] of Blood by Automated count HGB 14.2 g/dL 12.0-15.9 Hemoglobin [Mass/volume] in Blood RBC 5.24 10*6/mm3 3.77-5.28 Erythrocyt es [#/volume] in Blood by Automated count WBC 6.39 10*3/mm3 3.40-10.8 0 Leukocytes [#/volume] in Blood by Automated count Lab Report: COMPREHENSIVE ME TABOLIC PANEL ANIONGAP 8.0 mmol/L 5.0-15.0 anion gap, serum BUN/CREAT 21.3 7.0-25.0 Urea nitrogen/Creatinine [Mass Ratio] in Serum or Plasma GFRC 64 mL/min/1. 73m2 >60 Glomerular Filtration Rate Calculation BILI TOTAL 1.1 mg/dL 0.0-1.2 Bilirubin. total [Mass/volume] in Serum or Plasma ALK PHOS 81 U/L 39-117 Alkaline dixon sphatase [Enzymatic activity/volume] in Blood SGOT (AST) 19 U/L 1-32 Aspartate aminotransferase [Enzymatic activity/volume] in Serum or Plasma SGPT (ALT) 13 U/L 1-33 Alanine aminotransferase [Enzymatic activity/volume] in Serum or Plasma ALBUMIN 4.20 g/dL 3.50-5.20 Albumin [Mass/volume] in Serum or Plasma PROTEIN, TOT 7.7 g/dL 6.0-8.5 Protein [Mass/volume] in Serum or Plasma CALCIUM 10.7 mg/dL 8.6-10.5 H Calcium [Moles/volume] in Serum or Plasma CO2 31.0 mmol/L 22.0-29.0 H Carbon diox krissy, total [Moles/volume] in Venous blood CHLORIDE 105 mmol/L 98-107 Chloride [Moles/volume] in Serum or Plasma POTASSIUM 5.0 mmol/L 3.5-5.2 Potassium [Moles/volume] in Serum or Plasma SODIUM 144 mmol/L 136-145 Sodium [Moles/volume] in Serum or Plasma CREATININE 0.89 mg/dL 0.57-1.00 Creatini ne [Mass/volume] in Serum or Plasma BUN 19 mg/dL 8-23 Urea nitrogen [Mass/volume] in Serum or Plasma GLUCOSE SER 103 mg/dL 65-99 H Glucose [Mass/volume] in Serum or Plasma Office Visit: 10 MEDS REVIEW Done Documenta tion of current medications (procedure) ORALTOBACUSE Never Tobacco smoking status SMOK STATUS Never smoker Tobacco smoking status Plan of Care Type Date Detail Pending order Continue oral an tibiotics Pending order CBC with Differe ntial Pending order CMP Pending order STAT Labs Pending order New Oral Antibio tic Pending order CBC with Differe ntial Pending order CMP Patient education WEIGHT%20MANAG EMENT Procedures Code Procedure Name Date Entry Date CPT-Cooral Continue oral antibiotics 01/03/17 [id number] CBC with Differential 2019 CPT-89722 CMP CPT-sl STAT Labs CPT-patt New Oral Antibiotic [id number] CBC with Differential 2019 CPT-77022 CMP Vital Signs Date Name Value Unit Description BMI (Body Mass Index) 30.86 kg/m2 Bod y Mass Index (Ratio) Body Temperature 97.6 [degF] temperat ure E&M BP Diastolic 85 mm[Hg] blood pressu re, diastolic BP Systolic 132 mm[Hg] blood pressur e, systolic Heart Rate 78 /min pulse rate Respiratory Rate 16 /min respirat ory rate E&M Weight Measured 209.0 [lb_av] weight E& M Weight Measured 209.0 [lb_av] weight E& M Height 69 [in_us] height E&M Immunizations No information available. Advance Directives Directive Description Start Date NO ADVANCED DIRECTIVES AT THIS MOMENT 29/01/27
--- OUTSIDE RECORDS SUMMARY | 2025-02-13 14:09 | XMS_ITS | Encounter Summary ---
Author Organization [facility] yste Address [address] [place] [id number] Care Team Providers Care Defence Intelligence Analyst Name Role Phone Jamaal Diaz MD Primary Care Provider + Encounter Details Date Type Department Care Team (Latest Contact Info) Description 12/29/2024 Travel Social History Tobacco Use Types Packs/Day Years [...] PM EDT documented as of this encounter Plan of Treatment Upcoming Encounters Date Type Department Care Team (Late st Contact Info) Description 05/29/2025 10:15 AM EST Office Visit [facility] [address] [place] [address] Jamaal Diaz MD [address] [place] [address] 07/02/2025 11:30 AM EDT Office Visit [facility] RHEUMATOLOGY [address] [address] Hal Wadsworth DO [address] [id number] documented as of this encounter Visit Diagnoses Not on filedocumented in this encounter Care Teams Defence Intelligence Analyst Relationship Specialty Start Date End Date Jamaal Diaz MD [address] [place] [address] PCP - General Family Medicine 09/18/21 documented as of this encounter
--- OUTSIDE RECORDS SUMMARY | 2025-02-13 14:09 | XMS_ITS | Clinical Summary ---
[facility] Address [address] [place] [address] Care Team Providers Care Risk Modeler Name Role Phone Jamaal Diaz MD Primary Care Provider + Allergies Active Allergy Reactions Criticality Noted Date Comments Cephalexin Nausea And Vomiting 09/18/2021 Medications Acetaminophen (TYLENOL ARTHRITIS PAIN PO) Take by mouth. Activ e hydrOXYzine (ATARAX) 25 MG tabletIndications: Pruritic condition,Seasonal allergic rhinitis due to pollen TAKE 1 TABLET BY MOUTH EVERY 8 HOURS NEEDED FOR ITCHING 270 tablet 03/20/20 24 Active amLODIPine (NORVASC) 10 MG tabletIndications: Essential hypertension Take 1 tablet by mouth Daily. 90 tablet 3 05/23/19 25 Active famotidine (PEPCID) 40 MG tabletIndications: Gastroesophageal reflux disease without esophagitis Take 1 tablet by mouth 2 (Two) Times a Day. 180 tablet 3 05/23/19 25 Active montelukast (SINGULAIR) 10 MG tabletIndications: Seasonal allergic rhinitis due to pollen Take 1 tablet by mouth Every Night. 90 tablet 3 05/23/19 25 Active rosuvastatin (CRESTOR) 40 MG tabletIndications: Hypercholesterolem ia Take 1 tablet by mouth Daily. 90 tablet 3 05/23/19 25 Active levothyroxine (SYNTHROID, LEVOTHROID) 75 MCG tabletIndications: Acquired hypothyroidism Take 1 tablet by mouth once daily 90 tablet 3 07/14/19 25 Active fluocinonide (LIDEX) 0.05 % gelIndications:Ora l lichen planus Apply 1 Application topically to the appropriate area as directed 4 (Four) Times a Day. 60 g 1 11/21/19 25 Active traMADol (ULTRAM) 50 MG tabletIndications: Primary osteoarthritis involving multiple joints,Encounter for therapeutic drug monitoring Take 1 tablet by mouth Every 6 (Six) Hours As Needed for Moderate Pain. 120 tablet 5 12/30/19 25 Active Active Problems Problem Noted Date Diagnosed Date Encounter for therapeutic drug monitoring 2023 Assessment & Plan (12/29/2024 2:06 PM EDT): * Tramadol 50 mg every 6 hours PRN for pain * Controlled substance agreement updated 12/29/24 Check [place] and Drug screen as required. Drug screen ordered today Assessment & Plan (06/26/2024 2:25 PM EDT): * Tramadol 50 mg every 6 hours PRN for pain * Controlled substance agreement updated 12/27/23 Check [place] and Drug screen as required. Drug screen ordered today Assessment & Plan (12/27/2023 2:46 PM EDT): * Tramadol 50 mg every 6 hours PRN for pain * Controlled substance agreement updated 12/27/23 Check [place] and Drug screen as required. Drug screen ordered today Osteoarthritis 12/19/2023 Assessment & Plan (12/29/2024 2:51 PM EDT): * Medications/treatments/interventions tried include: Tylenol, Celebrex, IM steroid injections, gabapentin, oral prednisone taper, hydrocodone/APAP, She has seen podiatry, meloxicam, She has seen a oil paint shader, she got back injections, Tramadol, Physical therapy, [...] oils 11. She has tried collagen peptides Assessment & Plan (06/26/2024 2:33 PM EDT): * Medications/treatments/interventions tried include: Tylenol, Celebrex, IM steroid injections, gabapentin, oral prednisone taper, hydrocodone/APAP, She has seen podiatry, meloxicam, She has seen a oil paint shader, she got back injections, Tramadol, Physical therapy, [...] review 10. She has tried essential oils Qq. She has tried collagen peptides Assessment & Plan (12/27/2023 2:46 PM EDT): * Medications/treatments/interventions tried include: Tylenol, Celebrex, IM steroid injections, gabapentin, oral prednisone taper, hydrocodone/APAP, She has seen podiatry, meloxicam, She has seen a oil paint shader, she got back injections, Tramadol, Physical therapy, Trochanteric bursa injection * 12/27/19 autoimmune testing normal 1. Tylenol PRN is ok as directed. 2. She has tried NSAIDS including OTC, Meloxicam, and Celebrex. 3. Weight loss would be helpful. 4. She has seen pain management and received back & hip injections. 5. We will request recent labs from PCP 6. She has seen podiatry for her feet/ankles. 7. Follow up with us in 4-6 months. 8. Continue/refill Tramadol PRN 9. We gave her a handout on osteoarthritis to take home and review Arthritis of foot, left 04/09/2023 Arthritis of foot, right 04/09/2023 Oral lichen planus 03/02/2023 Assessment & Plan (03/02/2023 2:40 PM EST): Improved. Reduce topical steroid to twice daily. Reassess at follow-up at the end of March Primary hypertension 09/18/2021 Assessment & Plan (11/20/2024 11:17 AM EDT): Hypertension is not at goal Continue current treatment regimen. Dietary sodium restriction. Self-monitoring Blood pressure will be reassessed in 6 months. Assessment & Plan (05/23/2024 3:44 PM EST): Orders: amLODIPine (NORVASC) 10 MG tablet; Take 1 tablet by mouth Daily. Assessment & Plan (05/23/2024 3:44 PM EST): Orders: amLODIPine (NORVASC) 10 MG tablet; Take 1 tablet by mouth Daily. Assessment & Plan (04/09/2023 11:57 AM EST): Hypertension is unchanged. Continue current medications. Blood pressure will be reassessed at the next regular appointment. Hypertension is not at goal. Amlodipine will be increased to 10 mg Assessment & Plan (10/05/2022 9:36 AM EDT): Hypertension is improving with treatment. Continue current treatment regimen. Blood pressure will be reassessed at the next regular appointment. Assessment & Plan (03/20/2022 3:00 PM EST): Hypertension is improving with treatment. Continue current treatment regimen. Dietary sodium restriction. Regular aerobic exercise. Blood pressure will be reassessed at the next regular appointment. Hypercholesterolemia 09/18/2021 Assessment & Plan (05/23/2024 3:44 PM EST): Orders: Lipid Panel rosuvastatin (CRESTOR) 40 MG tablet; Take 1 tablet by mouth Daily. Assessment & Plan (05/23/2024 3:44 PM EST): Orders: Lipid Panel rosuvastatin (CRESTOR) 40 MG tablet; Take 1 tablet by mouth Daily. Assessment & Plan (10/05/2022 9:36 AM EDT): Lipid abnormalities are improving with treatment. Pharmacotherapy as ordered. Lipids will be reassessed in 6 months. Seasonal allergic rhinitis due to pollen 022 Assessment & Plan (05/23/2024 3:44 PM EST): Orders: montelukast (SINGULAIR) 10 MG tablet; Take 1 tablet by mouth Every Night. Gastroesophageal reflux disease without esophagi tis 09/18/2021 Assessment & Plan (05/23/2024 3:44 PM EST): Orders: famotidine (PEPCID) 40 MG tablet; Take 1 tablet by mouth 2 (Two) Times a Day. Assessment & Plan (10/05/2022 9:36 AM EDT): Control improved with dual therapy PPI and H2 contreras. Continue current regimen. RTO 6 months Assessment & Plan (03/20/2022 3:00 PM EST): Questionable control. We will add on a as needed Pepcid to use in addition to daily pantoprazole Acquired hypothyroidism 09/18/2021 Assessment & Plan (11/20/2024 11:19 AM EDT): Due to presence of rash will check TSH. Hypothyroidism is likely well controlled. Assessment & Plan (05/23/2024 3:44 PM EST): Orders: TSH Assessment & Plan (10/05/2022 9:36 AM EDT): Stable. Surveillance TSH ordered today. RTO 6 months Assessment & Plan (03/20/2022 3:00 PM EST): Surveillance TSH ordered. 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 09/18/2021 Encounters Date Type Department Care Team Description 12/29/2024 2:45 PM EDT Office Visit [facility] [address] [address] Hal Wadsworth DO Primary osteoarthritis involving multiple joints (Primary Dx); Encounter for therapeutic drug monitoring 12/29/2024 Travel 11/21/2024 Results Follow-Up [facility] [address] [place] [address] Jamaal Diaz MD 11/20/2024 10:45 AM EDT Office Visit [facility] [address] [place] [address] Jamaal Diaz MD Primary hypertension (Primary Dx); Acquired hypothyroidism; Oral lichen planus; Hypercholesterolemia; Rash 11/20/2024 Travel from Last 3 Months Immunizations Immunization Administration Dates Next Due Arexvy (RSV, Adults 60+ yrs) 04/09/2023 COVID-19 (MODERNA) 1st,2nd,3 rd Dose Monovalent 01/06/2021,12/25/2020,07/09/2020,2020 Flu Vaccine Quad PF >36MO 01/21/2021,12/23/2015 Fluzone (or Fluarix & Flulav al for VFC) >6mos 03/02/2023,01/19/2022,01/21/2021,2019,12/23/2015 Fluzone High-Dose 65+YRS 01/28/2024 Hepatitis A 03/26/2018 INFLUENZA SPLIT TRI 12/25/2020 Influenza, Unspecified 01/19/2022 Pneumococcal Conjugate 20-Va lent (PCV20) 10/11/2023 Shingrix 06/06/2021 Family History Medical History Relation Name Comments Arthritis Brother Asthma Daughter Arthritis Father Pradip Perry Dementia Father Pradip Perry Heart attack Father Pradip Perry Heart disease Father Pradip Perry Hyperlipidemia Father Pradip Perry Hypertension Father Pradip Perry Stroke Father Pradip Perry Cancer Maternal Grandmother Sara Obregon Arthritis Mother Za Perry Heart attack Mother Za Perry Heart disease Mother Za Perry Hypertension Mother Za Perry Melanoma Mother Za Perry Migraines Mother Za Perry Arthritis Sister [place] DISESE Sister BACK ISSUE Son Relation Name Status Comments Brother Daughter Father Pradip Perry Maternal Grandmother Sara Ob[place] Mother Za Perry Alive Sister Son Social History Tobacco Use Types Packs/Day Years Used Date Smoking Tobacco: Never Passive Smoke Exposure: Past Smokeless Tobacco: Never Tobacco Cessation:Counseling Given: Not Answered Alcohol Use Standard Drinks/Week Comments Never 0 [...] Orientation Straight 12/28/2024 5: 32 PM EDT Last Filed Vital Signs Vital Sign Reading Time Taken Comments Blood Pressure 142/80 12/29/2024 2:09 PM EDT Pulse 57 12/29/2024 2:09 PM EDT Temperature 36.2 C (97.1 F) 12/29/2024 2:09 PM EDT Respiratory Rate 20 11/20/2024 10:28 AM EDT Oxygen Saturation 98% 11/20/2024 10:28 AM EDT Inhaled Oxygen Concentration - - Weight 95.3 kg (210 lb 1.6 oz) 12/29/2024 2:09 P M EDT Height 175.3 cm (5' 9.02 ) 12/29/2024 2:09 PM ED T Body Mass Index 31.01 12/29/2024 2:09 PM EDT Plan of Treatment Upcoming Encounters Date Type Department Care Team (Late st Contact Info) Description 05/29/2025 10:15 AM EST Office Visit [facility] [address] [address] Jamaal Diaz MD [address] [address] 07/02/2025 11:30 AM EDT Office Visit [facility] [address] [facility] [address] [place] [address] Hal Wadsworth DO [address] [facility] [address] [place] [address] Health Maintenance Due Date Last Done Comments DXA SCAN 1958 TDAP/TD VACCINES (1 - Tdap) 1977 COLOGUARD 2003 COLON CANCER SCREENING 5 YEA R SIGMOIDOSCOPY 2003 CT COLONOGRAPHY 2003 FECAL OCCULT BLOOD TEST 2003 FIT Testing (1 year) 2003 ZOSTER VACCINE (2 of 2) 08/01/2021 06/06/2021 HEPATITIS C SCREENING 09/18/2021 INFLUENZA VACCINE 11/10/2024 01/28/2024, , 01/19/2022, Additional history exists COVID-19 Vaccine (5 - 2024-2 6 season) 2024 01/06/2021, 12/25/2020, 07/09/2020, Additional history exists ANNUAL WELLNESS VISIT 05/23/2025 05/23/2024 , 05/23/2024, 04/09/2023 LIPID PANEL 05/23/2025 05/23/2024, 09/11, 09/18/2021 MAMMOGRAM 01/13/2026 01/14/2024, 12/11, 11/03/2021 COLONOSCOPY 01/18/2028 01/17/2018, 11/2017, 01/17/2018 COLORECTAL CANCER SCREENING 01/18/2028 Pneumococcal Vaccine 50+ Completed 10/11/2023 Procedures Procedure Name Priority Date/Time Associated Diagnosis Comments URINE DRUG SCREEN Routine 12/29/2024 3:2 8 PM EDT Primary osteoarthritis involving multiple joints Encounter for therapeutic drug monitoring TSH Routine 11/20/2024 11:16 AM EDT Acquired hypothyroidism LIPID PANEL Routine 05/23/2024 3:46 PM EST Hypercholesterolemia SCANNED - MAMMO 01/14/2024 SCANNED - COLONOSCOPY 01/17/2018 from Last 3 Months or Most Recently Relevant to Health Maintenance Results * (ABNORMAL) Urine Drug Screen - [...] is inconsistent with an expected outcome. Email: [email or web address] Urine Urine specimen obtained by clean catch procedure / Unknown 12/29/2024 3:28 PM EDT 12/29/2024 Narrative [facility] (AMBULATORY) - 01/02/2025 8:08 AM EDT Performed at: - [facility] [address] [place], [place] [id number] Cod Clerk: Verna Burr PhD, Phone: [phone] Patient Fasting: N Hal Wadsworth DO URINE ORDERABLES Final Result Performing Organization Address City/[facility]/ZIP Co de Phone Number [facility] (AMBULATORY) [address] [id number], [facility] [address] [place] [address], * TSH (11/20/2024 11:16 AM EDT) [facility] TSH 1.990 0.450 - 4.500 uIU/mL [facility] Blood 11/20/2024 11:1 6 AM EDT 11/20/[address] [facility] (AMBULATORY) - 11/21/2024 7:09 AM EDT Performed at: - [address] [id number] Cod Clerk: Ashvin Ybarra PhD, Phone: [phone] Patient Fasting: N Jamaal Diaz MD LAB BLOOD ORDERABLES Fin al Result Performing Organization Address City/[facility]/ZIP Co de Phone Number [facility] (AMBULATORY) [address] [place] [address], [facility] [address] [place] [id number], * Lipid Panel (05/23/2024 3:46 PM EST) [facility] Total Cholesterol 189 100 - 199 mg/dL [facility] Triglycerides 107 0 - 149 mg/dL [facility] HDL Cholesterol 72 >39 mg/dL [facility] VLDL Cholesterol Richard 19 5 - 40 mg/dL [facility] LDL Chol Calc (NIH) 98 0 - 99 mg/dL [facility] Blood 05/23/2024 3:46 PM EST 05/23/[address] [facility] (AMBULATORY) - 05/24/2024 5:06 AM EST Performed at: - [address] [id number] Cod Clerk: Ashvin Ybarra PhD, Phone: [phone] Patient Fasting: Y Jamaal Diaz MD LAB BLOOD ORDERABLES Fin al Result [facility] (AMBULATORY) [address] [place] [address], [facility] [address] [place] [address], * MAMMO Scan (01/14/2024) Anatomical Region Laterality Modality Other Jamaal Diaz MD CHART REVIEW TABS Fin al Result * SCANNED - COLONOSCOPY (01/17/2018) Jamaal Diaz MD CHART REVIEW TABS Fin al Result from Last 3 Months or Most Recently Relevant to Health Maintenance Insurance [employer] PPO Care Teams Risk Modeler Relationship Specialty Start Date End Date Jamaal Diaz MD [address] [address] PCP - General Family Medicine 09/18/21
--- OUTSIDE RECORDS SUMMARY | 2025-02-13 14:09 | XMS_ITS | Encounter Summary ---
Author Organization [facility] y[facility] Address [address] [place] [phone] Care Team Providers Care Legal Office Administrator Name Role Phone Jamaal Diaz MD Primary Care Provider + Encounter Details Date Type Department Care Team (Late st Contact Info) Description 11/21/2024 Results Follow-Up [facility] [address] [facility] [place] [address] Jamaal Diaz MD [address] [facility] [place] [address] Social History Tobacco Use Types Packs/Day Years [...] Description 05/29/2025 10:15 AM EST Office Visit [facility] [address] [place] [address] Jamaal Diaz MD [address] [place] [address] 07/02/2025 11:30 AM EDT Office Visit [facility] [address] [address] Hal Wadsworth DO [address] [phone] documented as of this encounter Visit Diagnoses Not on filedocumented in this encounter Care Teams Legal Office Administrator Relationship Specialty Start Date End Date Jamaal Diaz MD [address] [place] [address] PCP - General Family Medicine 09/18/21 documented as of this encounter
--- NOTE | 2025-02-13 14:30 | MM_ITS ---
PROCEDURE INFORMATION: Exam: MG Bilateral Screening 3D Mammography Exam date and time: 02/13/2025 2:07 PM Age: 64 years old Clinical indication: Screening mammogram. TECHNIQUE: Imaging protocol: Bilateral Screening tomosynthesis and 2D mammography including computer-aided detection (CAD) when performed. COMPARISON: 1. MG MM DIG SCREENING MAMM BI W/CAD 01/07/2024 12:48 PM 2. MG MM DIG SCREENING MAMM BI W/CAD 12/21/2022 1:18 PM 3. MG MM DIG SCREENING MAMM BI W/CAD 11/03/2021 10:50 AM 4. MG MM DIG SCREENING MAMM BI W/CAD 10/30/2020 8:15 AM FINDINGS: MAMMOGRAPHY: Breast composition: There are scattered areas of fibroglandular density. Mass: None. Architectural distortion: No new or suspicious architectural distortion. Calcifications: Stable benign-appearing calcifications are present. No new or suspicious cluster of microcalcifications have developed. Asymmetric density: No new or suspicious asymmetric density is present Skin thickening: None. Axillary adenopathy: None. IMPRESSION: No mammographic evidence of malignancy. Recommend annual screening mammography unless otherwise clinically indicated. ASSESSMENT: BI-RADS category 2: Benign.
== END 2025-02-13 23:59 | disposition home or self-care (01) ==
LOC: RAD 14:06
PROVIDERS: PCP Family Medicine; Visit Provider Obstetrics & Gynecology
DX: Z12.31 Encounter for screening mammogram for malignant neoplasm of breast (principal); R92.323 Mammographic fibroglandular density, bilateral breasts; R92.1 Mammographic calcification found on diagnostic imaging of breast
CPT/HCPCS: 77063; 77067